=== PATIENT | female | born 1980 ===

== ENCOUNTER 2018-06-20 16:41 | Inpatient (IN) | payer BC ==
[2018-06-20 18:24] LABS: URINE BILIRUBIN NEGATIVE (NEGATIVE); URINE BLOOD NEGATIVE (NEGATIVE); URINE CLARITY CLEAR (Clear); URINE COLOR YELLOW (YELLOW); URINE GLUCOSE (UA) NEG (NEGATIVE); URINE LEUKOCYTE ESTERASE NEG Leu/uL (Negative); URINE PROTEIN NEGATIVE (NEGATIVE); URINE UROBILINOGEN 0.2-1.0 mg/dL (0.2-1.0)
[2018-06-20 18:28] LABS: BASO # 0.1 K/uL (0.0-0.2); BASO % 0.7 % (0.0-2.0); EOS # 0.1 K/uL (0.0-0.7); EOS % 1.2 % (0.0-4.0); HEMOGLOBIN 11.4 g/dL (12.0-16.0); LYMPH # 0.9 K/uL (1.0-4.3); LYMPH % 8.1 % (20.0-40.0); MEAN CELL VOLUME 75.5 fl (81.0-99.0); MEAN CORPUSCULAR HEMOGLOBIN 24.6 pg (27.0-31.0); MEAN CORPUSCULAR HGB CONC 32.6 g/dL (33.0-37.0); MEAN PLATELET VOLUME 8.7 fl (7.2-11.7); MONO # 0.8 K/uL (0.0-0.8); MONO % 7.6 % (0.0-10.0); NEUT # 9.1 K/uL (1.8-7.0); NEUT % 82.4 % (50.0-75.0); PLATELET COUNT 274 K/uL (130-400); RBC 4.63 Mil/uL (3.80-5.20); RED CELL DISTRIBUTION WIDTH 19.1 % (11.5-14.5); WHITE BLOOD COUNT 11.1 K/uL (4.8-10.8)
[2018-06-20 18:36] LABS: ALB/GLOB RATIO 1.3 (1.0-2.1); ALBUMIN 4.6 g/dL (3.5-5.0); ALT/SGPT 152 U/L (9-52); AST/SGOT 157 U/L (14-36); BLOOD UREA NITROGEN 10 mg/dl (7-17); CALCIUM 9.2 mg/dL (8.4-10.2); GFR NON-AFRICAN AMERICAN > 60; LIPASE 100 U/L (23-300)
--- NOTE | 2018-06-20 18:51 | US ---
Date of service: 06/20/2018 HISTORY: RUQ and aorta, central abd pain COMPARISON: None available TECHNIQUE: Sonographic evaluation of the right upper quadrant of the abdomen. FINDINGS: LIVER: Measures 16.4 cm in length. Echogenic liver may be seen in setting of hepatic parenchymal disease or fatty infiltration. No focal hepatic mass identified. The main portal vein appears patent with normal directional flow. No intrahepatic bile duct dilatation. GALLBLADDER: Gallstones. No gallbladder wall thickening or pericholecystic edema. Negative sonographic Sawyer's sign as assessed by the packaging materials inspector. COMMON BILE DUCT: Measures 4 mm. PANCREAS: Not well-visualized. RIGHT KIDNEY: Measures approximately 11.7 x 4.4 x 4.5 cm. No obstructing calculus or hydronephrosis identified. AORTA: Imaged portions of the aorta as follows: Proximal aorta measures approximately 2.3 x 1.7 x 1.6 cm; Mid aorta measures approximately 1.5 x 1.5 x 1.4 cm; Distal aorta measures approximately 1.8 x 1.4 x 1.2 cm. IVC: Limited visualization appears grossly unremarkable. OTHER FINDINGS: None . IMPRESSION: Cholelithiasis. Echogenic liver may be seen in setting of hepatic parenchymal disease or fatty infiltration. Additional findings as above.
--- NOTE | 2018-06-20 18:54 | ED PDOC ---
HPI: Abdomen Time Seen by Provider: 06/20/18 17:23 Chief Complaint (Nursing): Abdominal Pain Chief Complaint (Provider): Abdominal Pain History Per: Patient History/Exam Limitations: no limitations Onset/Duration Of Symptoms: Days Current Symptoms Are (Timing): Still Present Context: Food Quality Of Discomfort: "Pain" Associated Symptoms: Nausea. denies: Vomiting Additional Complaint(s): 38 year old female with PMHx of asthma and gastric sleeve presents to the ED for an evaluation of upper abdominal pain that is radiating to her back. She states the initial episode started yesterday after eating peanut butter. Today, the pain is associated with nausea and body aches. Also reports, had a prior episode of pain while driving one month ago hat resolved. Otherwise, patient denies melena, measured fever, vomiting or hematemesis. Past Medical History Reviewed: Historical Data, Nursing Documentation, Vital Signs Vital Signs: Last Vital Signs Temp 99.6 F 06/20/18 17:19 Pulse 104 H 06/20/18 17:19 Resp 16 06/20/18 17:19 BP 127/62 06/20/18 17:19 Pulse Ox 100 06/20/18 17:19 - Medical History PMH: Anemia, Asthma, Depression, Diabetes, HTN, Hypercholesterolemia, Hyperlipidemia, Hypothyroidism, Rheumatoid Arthritis, Sleep Apnea Denies: Chronic Kidney Disease - Surgical History Other surgeries: gastric sleeve, ear surgery and hip surgery - Family History Family History: States: Unknown Family Hx - Home Medications Home Medications: Ambulatory Orders Medication Instructions Recorded Acetaminophen with Codeine 1 tab PO Q6 PRN #10 tab 08/18/14 [Tylenol with Codeine No. 3 300 mg-30 mg] Albuterol Sulfate [Ventolin Hfa] 1 puff INH PRN PRN 06/21/18 Cholecalciferol (Vitamin D3) 400 unit PO DAILY 06/21/18 [Vitamin D-400] Lamotrigine [Lamictal Xr] 100 mg PO DAILY 06/21/18 Levothyroxine [Synthroid] 125 mcg PO DAILY 06/21/18 Loratadine [Claritin] 10 mg PO DAILY 06/21/18 Montelukast [Singulair] 10 mg PO DAILY 06/21/18 Omeprazole 40 mg PO DAILY 06/21/18 Sertraline [Zoloft] 150 mg PO DAILY 06/21/18 - Allergies Allergies/Adverse Reactions: Allergies Allergy/AdvReac Type Severity Reaction Status Date / Time adhesive tape Allergy RASH Verified 06/20/18 17:19 atorvastatin [From Lipitor] Allergy RASH Verified 06/20/18 17:19 fluoxetine [From Prozac] Allergy RASH Verified 06/20/18 17:19 Review of Systems ROS Statement: Except As Marked, All Systems Reviewed And Found Negative Constitutional: Positive for: Other (body pain ). Negative for: Fever Gastrointestinal: Positive for: Nausea, Abdominal Pain. Negative for: Vomiting, Hematemesis Physical Exam - Reviewed Nursing Documentation Reviewed: Yes Vital Signs Reviewed: Yes - Physical Exam Appears: Positive for: Non-toxic, No Acute Distress Head Exam: Positive for: ATRAUMATIC, NORMAL INSPECTION, NORMOCEPHALIC Skin: Positive for: Normal Color, Warm, Dry. Negative for: Rash Eye Exam: Positive for: EOMI, Normal appearance, PERRL ENT: Positive for: Normal ENT Inspection Neck: Positive for: Normal, Painless ROM, Supple. Negative for: Decreased ROM Cardiovascular/Chest: Positive for: Regular Rate, Rhythm. Negative for: Murmur Respiratory: Positive for: Normal Breath Sounds. Negative for: Decreased Breath Sounds, Respiratory Distress Gastrointestinal/Abdominal: Positive for: Tenderness (upper abdominal ), Other (positive for Sawyer's sign) Back: Positive for: Normal Inspection Extremity: Positive for: Normal ROM. Negative for: Tenderness, Pedal Edema, Deformity Neurological/Psych: Positive for: Awake, Alert, Normal Tone, Oriented (x3) - Laboratory Results Result Diagrams: 06/21/18 04:25 06/21/18 04:25 Lab Results: Total Bilirubin 0.4 mg/dl (0.2-1.3) 06/20/18 18:18 AST 157 U/L (14-36) H 06/20/18 18:18 ALT 152 U/L (9-52) H D 06/20/18 18:18 Alkaline Phosphatase 144 U/L (38-126) H 06/20/18 18:18 Total Protein 8.2 G/DL (6.3-8.2) 06/20/18 18:18 Albumin 4.6 g/dL (3.5-5.0) 06/20/18 18:18 Globulin 3.6 gm/dL (2.2-3.9) 06/20/18 18:18 Albumin/Globulin Ratio 1.3 (1.0-2.1) 06/20/18 18:18 Lipase 100 U/L (23-300) 06/20/18 18:18 Urine Color Yellow (YELLOW) 06/20/18 18:02 Urine Clarity Clear (Clear) 06/20/18 18:02 Urine pH 6.0 (5.0-8.0) 06/20/18 18:02 Ur Specific [place] 1.011 (1.003-1.030) 06/20/18 18:02 Urine Protein Negative mg/dL (NEGATIVE) 06/20/18 18:02 Urine Glucose (UA) Neg mg/dL (NEGATIVE) 06/20/18 18:02 Urine Ketones Negative mg/dL (NEGATIVE) 06/20/18 18:02 Urine Blood Negative (NEGATIVE) 06/20/18 18:02 Urine Nitrate Negative (NEGATIVE) 06/20/18 18:02 Urine Bilirubin Negative (NEGATIVE) 06/20/18 18:02 Urine Urobilinogen 0.2-1.0 mg/dL (0.2-1.0) 06/20/18 18:02 Ur Leukocyte Esterase Neg Rossy/uL (Negative) 06/20/18 18:02 Urine RBC (Auto) 1 /hpf (0-3) 06/20/18 18:02 Urine Microscopic WBC < 1 /hpf (0-5) 06/20/18 18:02 - ECG O2 Sat by Pulse Oximetry: 100 (RA) Pulse Ox Interpretation: Normal Medical Decision Making Medical Decision Making: Time: 1734 Impression: r/o biliary colic. Will initial antiemetic and pain medications Plan: CMP Lipase ED urine ED urine dipstick CBC w/ differential Morphine 2mg Zofran 4mg UA Abdomen limited US Reevaluation 1847 Abdomen US HISTORY: RUQ and aorta, central abd pain COMPARISON: None available TECHNIQUE: Sonographic evaluation of the right upper quadrant of the abdomen. FINDINGS: LIVER: Measures 16.4 cm in length. Echogenic liver may be seen in setting of hepatic parenchymal disease or fatty infiltration. No focal hepatic mass identified. The main portal vein appears patent with normal directional flow. No intrahepatic bile duct dilatation. GALLBLADDER: Gallstones. No gallbladder wall thickening or pericholecystic edema. Negative sonographic Sawyer's sign as assessed by the mine engineer. COMMON BILE DUCT: Measures 4 mm. PANCREAS: Not well-visualized. RIGHT KIDNEY: Measures approximately 11.7 x 4.4 x 4.5 cm. No obstructing calculus or hyd ronephrosis identified. AORTA: Imaged portions of the aorta as follows: Proximal aorta measures approximately 2.3 x 1.7 x 1.6 cm; Mid aorta measures approximately 1.5 x 1.5 x 1.4 cm; Distal aorta measures approximately 1.8 x 1.4 x 1.2 cm. IVC: Limited visualization appears grossly unremarkable. OTHER FINDINGS: None . IMPRESSION: Cholelithiasis. Echogenic liver may be seen in setting of hepatic parenchymal disease or fatty infiltration. Additional findings as above. 195 ABD & Pelvis IV contrast CT EXAM: CT Abdomen and Pelvis with IV contrast CLINICAL HISTORY: Ruq pain, cholelithiasis, elevated LFT'S TECHNIQUE: Axial computed tomography images of the abdomen and pelvis with intravenous contrast. 110.93 mGy-cm CONTRAST: With; [id number] 95ML COMPARISON: None provided. FINDINGS: LUNG BASES: The lung bases appear clear. No pleural effusions are seen. LIVER: There is hepatomegaly noted. The liver measured 19.3 cm in the midclavicular line. GALLBLADDER AND BILE DUCTS: There is tumefactive sludge noted in the gallbladder lumen. No biliary ductal dilatation is evident. PANCREAS: Unremarkable. SPLEEN: There is splenomegaly noted. The spleen measured approximately 17.7 x 4.6 cm in craniocaudal and transverse dimensions respectively. ADRENAL GLANDS: Unremarkable. KIDNEYS, URETERS, AND BLADDER: The kidneys appear within normal limits. There is no hydronephrosis or hydroureter. No urinary calculi are seen. The urinary bladder appeared normal in size and configuration. STOMACH AND BOWEL: A small hiatal hernia is present. Perigastric surgical sutures are noted from prior surgery. No evidence of bowel obstruction. There is mild mucosal wall thickening of the small intestinal tract with fluid in the lumen noted compatible with diffuse enteritis. Infectious or inflammatory etiologies are thought most likely. No evidence suggesting colitis. APPENDIX: No evidence of acute appendicitis on CT examination. PERITONEUM: No free fluid. No free air. LYMPH NODES: No lymphadenopathy is evident. REPRODUCTIVE: Unremarkable as visualized. VASCULATURE: No evidence of abdominal aortic aneurysm. Moderate atherosclerotic vascular plaquing is present. BONES: No aggressive appearing osseous lesion. No acute osseous pathology evident. A 6.2 mm sclerotic focus is seen in theL5 vertebral body thought compatible with a bone island. IMPRESSION: 1. Hepatomegaly. 2. Splenomegaly. 3. Tumefactive sludge noted in the gallbladder. 4. A small hiatal hernia is noted. 5. Evidence of previous gastric surgery. 6. Evidence of diffuse enteritis. Electronically signed on Jun 20, 2018 8:52:43 PM EDT by: Trev Millan M.D., M.B.A., Certified By [employer] Trained MRI and CT Specialist 910pm MD took patient's oral temp 101.8, therefore SIRS now triggered and given imaging findings concern for sepsis. VBG w lactate and cultures ordered, IVF bolus, tylenol, initiate Zosyn after cultures obtained. D/w C [facility] ANP, admit and consult surgery Dr Gill telephone station repairer. lactate <2.0, meets sepsis but not severe sepsis criteria Scribe Attestation: Documented by Samm Mckeon, acting as a scribe for Dennis Vieira III, DO. Provider Scribe Attestation: All medical record entries made by the Scribe were at my direction and personally dictated by me. I have reviewed the chart and agree that the record accurately reflects my personal performance of the history, physical exam, medical decision making, and the department course for this patient. I have also personally directed, reviewed, and agree with the discharge instructions and disposition. Disposition - Clinical Impression Clinical Impression: Sepsis, Cholelithiasis - Patient ED Disposition Is Patient to be Admitted: Yes Counseled Patient/Family Regarding: Studies Performed, Diagnosis - Disposition Disposition Time: 20:45 Condition: FAIR - Pt Status Changed To: Hospital Disposition Of: Inpatient - Admit Certification Admit to Inpatient:: After my assessment, the patient will require hospitalizat ion for at least two midnights. This is because of the severity of symptoms shown, intensity of services needed, and/or the medical risk in this patient being treated as an outpatient.
[2018-06-20 19:56] LABS: ANISOCYTOSIS SLIGHT; BASOPHIL 1 % (0-2); EOSINOPHIL 2 % (0-7); LYMPHOCYTE 13 % (20-50); MONOCYTE 5 % (0-10); NEUTROPHIL 79 % (42-75); PLATELET ESTIMATE NORMAL (NORMAL); TOTAL CELLS COUNTED 100
[2018-06-20 19:57] LABS: HYPOCHROMIC SLIGHT; MICROCYTOSIS SLIGHT; OVALOCYTES SLIGHT
[2018-06-20] MEDS ORDERED: Iohexol 300 100 ML IJ ONE (20:00)
[2018-06-20] MEDS ORDERED: Sodium Chloride 0.9% 50 ML IV ONE (20:01)
[2018-06-20] MEDS ORDERED: Sodium Chloride 0.9% 1,000 ML IV STA (21:14)
[2018-06-20] MEDS ORDERED: Piperacillin/Tazobact 4.5 GM in Sodium Chloride 0.9% 100 ML IVPB STA (21:15)
--- NOTE | 2018-06-20 22:10 | CP.PCM.CON ---
<JuarezPamela montoya - Last Filed: 06/20/18 22:06> History of Present Illness - History of Present Illness History of Present Illness: General Surgery - Dr. Gill 38 yo F presenting with upper abdominal pain and nausea x1 day. Pt states she had the pain yesterday but it seemed to go away at night time. Earlier today the pain returned shortly after eating and became worse, prompting her to come to the er. She describes it as an aching cramping pain located in the upper abdomen/epigastric region and RUQ abdomen, radiating towards the umbilicus, 10/01 but improved with pain medications. Pt states she's had episodes of this pain in the past and was told she had gallstones, but this episode is more severe. She had associated Nausea and Fever while in the ER. She denies any Chills, V omiting, Diarrhea, Constipation, Dysuria, Hematuria, Shortness of breath, Chest pain. PMH: Asthma, Sleep Apnea, HTN, Hypothyroid, GERD, Anxiety/Depression PSH: Gastric Sleeve in 2013 at [facility] [place] Arthroscopy, Hip surgery, I&D Meds as per chart Allergic to Fluoxetine and Atorvastatin +Tobacco use, Social ETOH, Denies any drug use Review of Systems - Review of Systems All systems: reviewed and no additional remarkable complaints except (as per HPI) Past Patient History - Past Social History Smoking Status: Heavy Smoker > 10 Cigarettes Daily - CARDIAC Hx Hypercholesterolemia: Yes Hx Hypertension: Yes - PULMONARY Hx Asthma: Yes Hx Sleep Apnea: Yes - NEUROLOGICAL Hx Neurological Disorder: No - HEENT Hx HEENT Problems: Yes Other/Comment: Drainage tube in left ear. - RENAL Hx Chronic Kidney Disease: No - ENDOCRINE/METABOLIC Hx Hypothyroidism: Yes - HEMATOLOGICAL/ONCOLOGICAL Hx Anemia: Yes - INTEGUMENTARY Hx Dermatological Problems: No - MUSCULOSKELETAL/RHEUMATOLOGICAL Hx Rheumatoid Arthritis: Yes - GASTROINTESTINAL Hx Gastrointestinal Disorders: Yes Hx Gastroesophageal Reflux: Yes - GENITOURINARY/GYNECOLOGICAL Hx Genitourinary Disorders: No - PSYCHIATRIC Hx Depression: Yes - SURGICAL HISTORY Hx Surgeries: Yes Hx Gastric Bypass Surgery: Yes (09/19/14) Other/Comment: incision and drainage of right groin abscess x4. Right hip arthroplasty x2. - ANESTHESIA Hx Anesthesia: Yes Hx Anesthesia Reactions: No Hx Malignant Hyperthermia: No Meds Allergies/Adverse Reactions: Allergies Allergy/AdvReac Type Severity Reaction Status Date / Time adhesive tape Allergy RASH Verified 06/20/18 17:19 atorvastatin [From Lipitor] Allergy RASH Verified 06/20/18 17:19 fluoxetine [From Prozac] Allergy RASH Verified 06/20/18 17:19 - Medications Medications: Current Medications Acetaminophen (Tylenol 325mg Tab) 650 mg PO Q4 PRN PRN Reason: Fever >100.4 F Sodium Chloride (Sodium Chloride 0.9%) 1,000 mls @ 1,000 mls/hr IV .Q1H STA Stop: 06/20/18 22:13 Last Admin: 06/20/18 21:30 Dose: 1,000 mls/hr Piperacillin Sod/Tazobactam (Sod 4.5 gm/ Sodium Chloride) 100 mls @ 100 mls/hr IVPB STAT STA; Protocol Stop: 06/20/18 22:14 Ketorolac Tromethamine (Toradol) 15 mg IVP Q6 PRN PRN Reason: Pain, moderate (4-7) Morphine Sulfate (Morphine) 2 mg IVP Q4 PRN PRN Reason: Pain, severe (8-10) Ondansetron HCl (Zofran Inj) 4 mg IVP Q6 PRN PRN Reason: Nausea/Vomiting Physical Exam - Constitutional Appears: Well, No Acute Distress - Head Exam Head Exam: ATRAUMATIC, NORMAL INSPECTION, NORMOCEPHALIC - Eye Exam Eye Exam: Normal appearance. absent: Scleral icterus Pupil Exam: NORMAL ACCOMODATION - ENT Exam ENT Exam: Mucous Membranes Moist - Respiratory Exam Respiratory Exam: NORMAL BREATHING PATTERN. absent: Respiratory Distress - Cardiovascular Exam Cardiovascular Exam: REGULAR RHYTHM - GI/Abdominal Exam GI & Abdominal Exam: Soft, Tenderness (RUQ and epigastric). absent: Distended, Firm, Guarding, Hernia, Rebound, Rigid - Neurological Exam Neurological exam: Alert, Oriented x3 - Psychiatric Exam Psychiatric exam: Normal Affect, Normal Mood - Skin Skin Exam: Dry, Intact Results - Vital Signs Recent Vital Signs: Last Vital Signs Temp 99.6 F 06/20/18 17:19 Pulse 104 H 06/20/18 17:19 Resp 16 06/20/18 17:19 BP 127/62 06/20/18 17:19 Pulse Ox 100 06/20/18 21:19 - Labs Result Diagrams: 06/20/18 18:18 06/20/18 18:18 Labs: Laboratory Results - last 24 hr 06/20/18 06/20/18 06/20/18 18:02 18:18 18:18 WBC 11.1 H RBC 4.63 Hgb 11.4 L Hct 35.0 MCV 75.5 L D MCH 24.6 L MCHC 32.6 L RDW 19.1 H Plt Count 274 D MPV 8.7 Neut % (Auto) 82.4 H Lymph % (Auto) 8.1 L [place] % (Auto) 7.6 Eos % (Auto) 1.2 Baso % (Auto) 0.7 Neut # (Auto) 9.1 H Lymph # (Auto) 0.9 L [place] # (Auto) 0.8 Eos # (Auto) 0.1 Baso # (Auto) 0.1 Neutrophils % (Manual) 79 H Lymphocytes % (Manual) 13 L Monocytes % (Manual) 5 Eosinophils % (Manual) 2 Basophils % (Manual) 1 Platelet Estimate Normal Hypochromasia (manual) Slight Anisocytosis (manual) Slight Microcytosis (manual) Slight Ovalocytes Slight Sodium 136 Potassium 3.7 Chloride 100 Carbon Dioxide 26 Anion Gap 14 BUN 10 Creatinine 0.6 L Est GFR ( Amer) > 60 Est GFR (Non-Af Amer) > 60 Random Glucose 87 Calcium 9.2 Total Bilirubin 0.4 AST 157 H ALT 152 H D Alkaline Phosphatase 144 H Total Protein 8.2 Albumin 4.6 Globulin 3.6 Albumin/Globulin Ratio 1.3 Lipase 100 Urine Color Yellow Urine Clarity Clear Urine pH 6.0 Ur Specific [place] 1.011 Urine Protein Negative Urine Glucose (UA) Neg Urine Ketones Negative Urine Blood Negative Urine Nitrate Negative Urine Bilirubin Negative Urine Urobilinogen 0.2-1.0 Ur Leukocyte Esterase Neg Urine RBC (Auto) 1 Urine Microscopic WBC < 1 - Imaging and Cardiology US - abdomen Status: Image reviewed by me, Report reviewed by me Assessment & Plan - Assessment and Plan (Free Text) Assessment: 38 yo F w/ hx of gastric sleeve in 2013, presenting with abdominal pain and found to have cholelithiasis -Admitted to medical service -Maintain NPO -IVF -IV Abx: Zosyn -Pain control and Anti-emetics PRN -Further reccs as per Dr. Jairo Juarez PGY4 <Maximus Gill - Last Filed: 06/21/18 14:25> Meds - Medications Medications: Current Medications Acetaminophen (Tylenol 325mg Tab) 650 mg PO Q4 PRN PRN Reason: Fever >100.4 F Last Admin: 06/21/18 04:22 Dose: 650 mg Piperacillin Sod/Tazobactam (Sod 3.375 gm/ Sodium Chloride) 100 mls @ 100 mls/hr IVPB Q6 LAY; Protocol Last Admin: 06/21/18 10:14 Dose: 100 mls/hr Lactated Ringer's (Lactated Ringer's) 1,000 mls @ 125 mls/hr IV .Q8H LAY Last Admin: 06/21/18 06:39 Dose: Not Given Ketorolac Tromethamine (Toradol) 15 mg IVP Q6 PRN PRN Reason: Pain, moderate (4-7) Morphine Sulfate (Morphine) 2 mg IVP Q4 PRN PRN Reason: Pain, severe (8-10) Last Admin: 06/21/18 09:40 Dose: 2 mg Ondansetron HCl (Zofran Inj) 4 mg IVP Q6 PRN PRN Reason: Nausea/Vomiting Results - Vital Signs Recent Vital Signs: Last Vital Signs Temp 99.3 F 06/21/18 12:33 Pulse 73 06/21/18 12:33 Resp 20 06/21/18 12:33 BP 111/68 06/21/18 12:33 Pulse Ox 95 06/21/18 12:33 - Labs Result Diagrams: 06/21/18 04:25 06/21/18 04:25 Labs: Laboratory Results - last 24 hr 06/20/18 06/20/18 06/20/18 18:02 18:18 18:18 WBC 11.1 H RBC 4.63 Hgb 11.4 L Hct 35.0 MCV 75.5 L D MCH 24.6 L MCHC 32.6 L RDW 19.1 H Plt Count 274 D MPV 8.7 Neut % (Auto) 82.4 H Lymph % (Auto) 8.1 L [place] % (Auto) 7.6 Eos % (Auto) 1.2 Baso % (Auto) 0.7 Neut # (Auto) 9.1 H Lymph # (Auto) 0.9 L [place] # (Auto) 0.8 Eos # (Auto) 0.1 Baso # (Auto) 0.1 Neutrophils % (Manual) 79 H Lymphocytes % (Manual) 13 L Monocytes % (Manual) 5 Eosinophils % (Manual) 2 Basophils % (Manual) 1 Platelet Estimate Normal Hypochromasia (manual) Slight Anisocytosis (manual) Slight Microcytosis (manual) Slight Ovalocytes Slight PT INR APTT pO2 VBG pH VBG pCO2 VBG HCO3 VBG Total CO2 VBG O2 Sat (Calc) VBG Base Excess VBG Potassium Glucose Lactate FiO2 Sodium 136 Potassium 3.7 Chloride 100 Carbon Dioxide 26 Anion Gap 14 BUN 10 Creatinine 0.6 L Est GFR ( Amer) > 60 Est GFR (Non-Af Amer) > 60 Random Glucose 87 Calcium 9.2 Total Bilirubin 0.4 AST 157 H ALT 152 H D Alkaline Phosphatase 144 H Total Protein 8.2 Albumin 4.6 Globulin 3.6 Albumin/Globulin Ratio 1.3 Lipase 100 Venous Blood Potassium Urine Color Yellow Urine Clarity Clear Urine pH 6.0 Ur Specific [place] 1.011 Urine Protein Negative Urine Glucose (UA) Neg Urine Ketones Negative Urine Blood Negative Urine Nitrate Negative Urine Bilirubin Negative Urine Urobilinogen 0.2-1.0 Ur Leukocyte Esterase Neg Urine RBC (Auto) 1 Urine Microscopic WBC < 1 06/20/18 06/21/18 06/21/18 22:10 04:25 04:25 WBC 10.1 RBC 4.34 Hgb 10.6 L Hct 32.6 L MCV 75.2 L MCH 24.5 L MCHC 32.5 L RDW 19.5 H Plt Count 232 MPV 8.8 Neut % (Auto) 84.4 H Lymph % (Auto) 5.2 L [place] % (Auto) 9.3 Eos % (Auto) 0.4 Baso % (Auto) 0.7 Neut # (Auto) 8.5 H Lymph # (Auto) 0.5 L [place] # (Auto) 0.9 H Eos # (Auto) 0.0 Baso # (Auto) 0.1 Neutrophils % (Manual) Lymphocytes % (Manual) Monocytes % (Manual) Eosinophils % (Manual) Basophils % (Manual) Platelet Estimate Hypochromasia (manual) Anisocytosis (manual) Microcytosis (manual) Ovalocytes PT INR APTT pO2 43 VBG pH 7.43 VBG pCO2 38 L VBG HCO3 25.2 VBG Total CO2 26.4 VBG O2 Sat (Calc) 84.8 H VBG Base Excess 1.0 VBG Potassium 3.7 Glucose 85 Lactate 1.2 FiO2 21.0 Sodium 134.0 135 Potassium 3.6 Chloride 103.0 102 Carbon Dioxide 24 Anion Gap 13 BUN 9 Creatinine 0.6 L Est GFR ( Amer) > 60 Est GFR (Non-Af Amer) > 60 Random Glucose 92 Calcium 8.3 L Total Bilirubin 0.5 AST 66 H D ALT 100 H D Alkaline Phosphatase 119 Total Protein 7.2 Albumin 4.0 Globulin 3.2 Albumin/Globulin Ratio 1.3 Lipase Venous Blood Potassium 3.7 Urine Color Urine Clarity Urine pH Ur Specific [place] Urine Protein Urine Glucose (UA) Urine Ketones Urine Blood Urine Nitrate Urine Bilirubin Urine Urobilinogen Ur Leukocyte Esterase Urine RBC (Auto) Urine Microscopic WBC 06/21/18 04:25 WBC RBC Hgb Hct MCV MCH MCHC RDW Plt Count MPV Neut % (Auto) Lymph % (Auto) [place] % (Auto) Eos % (Auto) Baso % (Auto) Neut # (Auto) Lymph # (Auto) [place] # (Auto) Eos # (Auto) Baso # (Auto) Neutrophils % (Manual) Lymphocytes % (Manual) Monocytes % (Manual) Eosinophils % (Manual) Basophils % (Manual) Platelet Estimate Hypochromasia (manual) Anisocytosis (manual) Microcytosis (manual) Ovalocytes PT 13.4 H INR 1.2 APTT 33.6 pO2 VBG pH VBG pCO2 VBG HCO3 VBG Total CO2 VBG O2 Sat (Calc) VBG Base Excess VBG Potassium Glucose Lactate FiO2 Sodium Potassium Chloride Carbon Dioxide Anion Gap BUN Creatinine Est GFR ( Amer) Est GFR (Non-Af Amer) Random Glucose Calcium Total Bilirubin AST ALT Alkaline Phosphatase Total Protein Albumin Globulin Albumin/Globulin Ratio Lipase Venous Blood Potassium Urine Color Urine Clarity Urine pH Ur Specific [place] Urine Protein Urine Glucose (UA) Urine Ketones Urine Blood Urine Nitrate Urine Bilirubin Urine Urobilinogen Ur Leukocyte Esterase Urine RBC (Auto) Urine Microscopic WBC Assessment & Plan - Assessment and Plan (Free Text) Assessment: unclear that she has cholecystitis, will get HIDA scan
[2018-06-20 22:17] LABS: VENOUS BLOOD GAS PCO2 38 mmHg (40-60); VENOUS BLOOD GAS PO2 43 mm/Hg (30-55); VENOUS BLOOD PH 7.43 (7.32-7.43)
[2018-06-21] MEDS: Lactated Ringer's 1,000 ML IV SCH ×3 (00:25→16:20)
[2018-06-21] MEDS ORDERED: Albuterol-Ipratrop 3 mg / 0.5 (3 ml) UD INH STA (01:11)
[2018-06-21] MEDS: Piperacillin/Tazobact 3.375 GM in Sodium Chloride 0.9% 100 ML IVPB SCH ×4 (04:23→21:17)
[2018-06-21 05:36] LABS: BASO # 0.1 K/uL (0.0-0.2); BASO % 0.7 % (0.0-2.0); EOS % 0.4 % (0.0-4.0); HEMOGLOBIN 10.6 g/dL (12.0-16.0); LYMPH # 0.5 K/uL (1.0-4.3); LYMPH % 5.2 % (20.0-40.0); MEAN CELL VOLUME 75.2 fl (81.0-99.0); MEAN CORPUSCULAR HEMOGLOBIN 24.5 pg (27.0-31.0); MEAN CORPUSCULAR HGB CONC 32.5 g/dL (33.0-37.0); MEAN PLATELET VOLUME 8.8 fl (7.2-11.7); MONO # 0.9 K/uL (0.0-0.8); MONO % 9.3 % (0.0-10.0); NEUT # 8.5 K/uL (1.8-7.0); NEUT % 84.4 % (50.0-75.0); NRBC % 0.1 % (0.0-0.0); RBC 4.34 Mil/uL (3.80-5.20); RED CELL DISTRIBUTION WIDTH 19.5 % (11.5-14.5); WHITE BLOOD COUNT 10.1 K/uL (4.8-10.8)
[2018-06-21 05:45] LABS: INR 1.2; PROTHROMBIN TIME 13.4 Seconds (9.8-13.1)
[2018-06-21 05:48] LABS: PARTIAL THROMBOPLASTIN TIME 33.6 Seconds (25.6-37.1)
[2018-06-21 06:05] LABS: ALB/GLOB RATIO 1.3 (1.0-2.1); ALT/SGPT 100 U/L (9-52); AST/SGOT 66 U/L (14-36); BLOOD UREA NITROGEN 9 mg/dl (7-17); CALCIUM 8.3 mg/dL (8.4-10.2); GFR NON-AFRICAN AMERICAN > 60
--- NOTE | 2018-06-21 09:06 | CT ---
Date of service: 06/20/2018 PROCEDURE: CT Abdomen and Pelvis with contrast HISTORY: RUQ pain cholelithiasis, elev LFTs COMPARISON: None. TECHNIQUE: Contrast dose: 95 mL Omnipaque 300 Radiation dose: Total exam DLP = 1110.93 mGy-cm. This CT exam was performed using one or more of the following dose reduction techniques: Automated exposure control, adjustment of the mA and/or kV according to patient size, and/or use of iterative reconstruction technique. FINDINGS: LOWER THORAX: Unremarkable. LIVER: Unremarkable. No gross lesion or ductal dilatation. GALLBLADDER AND BILE DUCTS: Cholelithiasis as demonstrated on ultrasound examination of the same date as well. No mural thickening or pericholecystic fluid. PANCREAS: Unremarkable. No gross lesion or ductal dilatation. SPLEEN: Mild splenomegaly. The spleen measures approximately 17.7 cm in greatest dimension. No focal mass. ADRENALS: Unremarkable. No mass. KIDNEYS AND URETERS: Unremarkable. No hydronephrosis. No solid mass. VASCULATURE: Unremarkable. No aortic aneurysm. No aortic atherosclerotic calcification or mural plaque present. BOWEL: Evidence of gastric sleeve procedure. Very small hiatal hernia. No bowel obstruction. No other abnormal bowel loops. APPENDIX: Normal appendix. PERITONEUM: Unremarkable. No free fluid. No free air. LYMPH NODES: Unremarkable. No enlarged lymph nodes. BLADDER: Poorly distended. Grossly normal. REPRODUCTIVE: Normal uterus. BONES: No acute fracture. OTHER FINDINGS: None. IMPRESSION: Cholelithiasis without evidence of cholecystitis. Splenomegaly. Status post gastric sleeve procedure. Small hiatal hernia. No other significant abnormality. The preliminary findings for this examination were reported by [facility] at 8:52 p.m. on 06/20/2018. There is discordance of this report with the preliminary findings. There is no evidence of diffuse enteritis on this examination.
--- NOTE | 2018-06-21 12:01 | CP.PCM.HP ---
History of Present Illness - History of Present Illness History of Present Illness: pt admitted for cholelithiasis, sepsis, cholecystitis. has been having fevers and abd pain. no n/v/d at present. bw nad imaging noted. consult appriciated. Present on Admission - Present on Admission Any Indicators Present on Admission: No Review of Systems - Constitutional Constitutional: As Per HPI, Fever - Gastrointestinal Gastrointestinal: As Per HPI, Abdominal Pain Past Patient History - Past Medical History & Family History Past Medical History?: Yes - Past Social History Smoking Status: Heavy Smoker > 10 Cigarettes Daily - CARDIAC Hx Hypercholesterolemia: Yes Hx Hypertension: Yes - PULMONARY Hx Asthma: Yes Hx Sleep Apnea: Yes - NEUROLOGICAL Hx Neurological Disorder: No - HEENT Hx HEENT Problems: Yes Other/Comment: Drainage tube in left ear. - RENAL Hx Chronic Kidney Disease: No - ENDOCRINE/METABOLIC Hx Hypothyroidism: Yes - HEMATOLOGICAL/ONCOLOGICAL Hx AIDS: No Hx Anemia: Yes Hx Human Immunodeficiency Virus (HIV): No - INTEGUMENTARY Hx Dermatological Problems: No - MUSCULOSKELETAL/RHEUMATOLOGICAL Hx Falls: No Hx Rheumatoid Arthritis: Yes - GASTROINTESTINAL Hx Gastrointestinal Disorders: Yes Hx Gastroesophageal Reflux: Yes - GENITOURINARY/GYNECOLOGICAL Hx Genitourinary Disorders: No - PSYCHIATRIC Hx Anxiety: Yes Hx Depression: Yes Hx Substance Use: No - SURGICAL HISTORY Hx Surgeries: Yes Hx Gastric Bypass Surgery: Yes (09/19/14) Other/Comment: incision and drainage of right groin abscess x5. Right hip arthroplasty x2. - ANESTHESIA Hx Anesthesia: Yes Hx Anesthesia Reactions: No Hx Malignant Hyperthermia: No Meds Allergies/Adverse Reactions: Allergies Allergy/AdvReac Type Severity Reaction Status Date / Time adhesive tape Allergy RASH Verified 06/20/18 17:19 atorvastatin [From Lipitor] Allergy RASH Verified 06/20/18 17:19 fluoxetine [From Prozac] Allergy RASH Verified 06/20/18 17:19 Physical Exam - Constitutional Appears: Well, Non-toxic, No Acute Distress - Head Exam Head Exam: ATRAUMATIC, NORMAL INSPECTION, NORMOCEPHALIC - Eye Exam Eye Exam: EOMI, Normal appearance, PERRL Pupil Exam: NORMAL ACCOMODATION, PERRL - ENT Exam ENT Exam: Mucous Membranes Moist, Normal Exam - Neck Exam Neck exam: Positive for: Normal Inspection - Respiratory Exam Respiratory Exam: Clear to Auscultation Bilateral, NORMAL BREATHING PATTERN - Cardiovascular Exam Cardiovascular Exam: REGULAR RHYTHM, RRR, +S1, +S2 - GI/Abdominal Exam GI & Abdominal Exam: Normal Bowel Sounds, Soft, Tenderness Additional comments: ruq pain - Extremities Exam Extremities exam: Positive for: full ROM, normal capillary refill, normal inspection, pedal pulses present - Back Exam Back exam: NORMAL INSPECTION - Neurological Exam Neurological exam: Alert, CN II-XII Intact, Normal Gait, Oriented x3, Reflexes Normal - Psychiatric Exam Psychiatric exam: Normal Affect, Normal Mood - Skin Skin Exam: Dry, Intact, Normal Color, Warm Results - Vital Signs Recent Vital Signs: Last Vital Signs Temp 99.0 F 06/21/18 08:25 Pulse 72 06/21/18 08:48 Resp 20 06/21/18 08:48 BP 96/57 L 06/21/18 08:48 Pulse Ox 98 06/21/18 08:48 - Labs Result Diagrams: 06/21/18 04:25 06/21/18 04:25 Labs: Laboratory Results - last 24 hr 06/20/18 06/20/18 06/20/18 18:02 18:18 18:18 WBC 11.1 H RBC 4.63 Hgb 11.4 L Hct 35.0 MCV 75.5 L D MCH 24.6 L MCHC 32.6 L RDW 19.1 H Plt Count 274 D MPV 8.7 Neut % (Auto) 82.4 H Lymph % (Auto) 8.1 L [place] % (Auto) 7.6 Eos % (Auto) 1.2 Baso % (Auto) 0.7 Neut # (Auto) 9.1 H Lymph # (Auto) 0.9 L [place] # (Auto) 0.8 Eos # (Auto) 0.1 Baso # (Auto) 0.1 Neutrophils % (Manual) 79 H Lymphocytes % (Manual) 13 L Monocytes % (Manual) 5 Eosinophils % (Manual) 2 Basophils % (Manual) 1 Platelet Estimate Normal Hypochromasia (manual) Slight Anisocytosis (manual) Slight Microcytosis (manual) Slight Ovalocytes Slight PT INR APTT pO2 VBG pH VBG pCO2 VBG HCO3 VBG Total CO2 VBG O2 Sat (Calc) VBG Base Excess VBG Potassium Glucose Lactate FiO2 Sodium 136 Potassium 3.7 Chloride 100 Carbon Dioxide 26 Anion Gap 14 BUN 10 Creatinine 0.6 L Est GFR ( Amer) > 60 Est GFR (Non-Af Amer) > 60 Random Glucose 87 Calcium 9.2 Total Bilirubin 0.4 AST 157 H ALT 152 H D Alkaline Phosphatase 144 H Total Protein 8.2 Albumin 4.6 Globulin 3.6 Albumin/Globulin Ratio 1.3 Lipase 100 Venous Blood Potassium Urine Color Yellow Urine Clarity Clear Urine pH 6.0 Ur Specific [place] 1.011 Urine Protein Negative Urine Glucose (UA) Neg Urine Ketones Negative Urine Blood Negative Urine Nitrate Negative Urine Bilirubin Negative Urine Urobilinogen 0.2-1.0 Ur Leukocyte Esterase Neg Urine RBC (Auto) 1 Urine Microscopic WBC < 1 06/20/18 06/21/18 06/21/18 22:10 04:25 04:25 WBC 10.1 RBC 4.34 Hgb 10.6 L Hct 32.6 L MCV 75.2 L MCH 24.5 L MCHC 32.5 L RDW 19.5 H Plt Count 232 MPV 8.8 Neut % (Auto) 84.4 H Lymph % (Auto) 5.2 L [place] % (Auto) 9.3 Eos % (Auto) 0.4 Baso % (Auto) 0.7 Neut # (Auto) 8.5 H Lymph # (Auto) 0.5 L [place] # (Auto) 0.9 H Eos # (Auto) 0.0 Baso # (Auto) 0.1 Neutrophils % (Manual) Lymphocytes % (Manual) Monocytes % (Manual) Eosinophils % (Manual) Basophils % (Manual) Platelet Estimate Hypochromasia (manual) Anisocytosis (manual) Microcytosis (manual) Ovalocytes PT INR APTT pO2 43 VBG pH 7.43 VBG pCO2 38 L VBG HCO3 25.2 VBG Total CO2 26.4 VBG O2 Sat (Calc) 84.8 H VBG Base Excess 1.0 VBG Potassium 3.7 Glucose 85 Lactate 1.2 FiO2 21.0 Sodium 134.0 135 Potassium 3.6 Chloride 103.0 102 Carbon Dioxide 24 Anion Gap 13 BUN 9 Creatinine 0.6 L Est GFR ( Amer) > 60 Est GFR (Non-Af Amer) > 60 Random Glucose 92 Calcium 8.3 L Total Bilirubin 0.5 AST 66 H D ALT 100 H D Alkaline Phosphatase 119 Total Protein 7.2 Albumin 4.0 Globulin 3.2 Albumin/Globulin Ratio 1.3 Lipase Venous Blood Potassium 3.7 Urine Color Urine Clarity Urine pH Ur Specific [place] Urine Protein Urine Glucose (UA) Urine Ketones Urine Blood Urine Nitrate Urine Bilirubin Urine Urobilinogen Ur Leukocyte Esterase Urine RBC (Auto) Urine Microscopic WBC 06/21/18 04:25 WBC RBC Hgb Hct MCV MCH MCHC RDW Plt Count MPV Neut % (Auto) Lymph % (Auto) [place] % (Auto) Eos % (Auto) Baso % (Auto) Neut # (Auto) Lymph # (Auto) [place] # (Auto) Eos # (Auto) Baso # (Auto) Neutrophils % (Manual) Lymphocytes % (Manual) Monocytes % (Manual) Eosinophils % (Manual) Basophils % (Manual) Platelet Estimate Hypochromasia (manual) Anisocytosis (manual) Microcytosis (manual) Ovalocytes PT 13.4 H INR 1.2 APTT 33.6 pO2 VBG pH VBG pCO2 VBG HCO3 VBG Total CO2 VBG O2 Sat (Calc) VBG Base Excess VBG Potassium Glucose Lactate FiO2 Sodium Potassium Chloride Carbon Dioxide Anion Gap BUN Creatinine Est GFR ( Amer) Est GFR (Non-Af Amer) Random Glucose Calcium Total Bilirubin AST ALT Alkaline Phosphatase Total Protein Albumin Globulin Albumin/Globulin Ratio Lipase Venous Blood Potassium Urine Color Urine Clarity Urine pH Ur Specific [place] Urine Protein Urine Glucose (UA) Urine Ketones Urine Blood Urine Nitrate Urine Bilirubin Urine Urobilinogen Ur Leukocyte Esterase Urine RBC (Auto) Urine Microscopic WBC Assessment & Plan (1) Cholelithiasis Assessment and Plan: surgery, gi pain control fever control ivf npo Status: Acute (2) DVT prophylaxis Assessment and Plan: scd nad ae hose [place] Status: Acute (3) Sepsis Assessment and Plan: zosyn ivf fever control follow bw will follow for source and r/in or r/o Status: Acute Decision To Admit - Pt Status Changed To: Hospital Disposition Of: Inpatient - Admit Certification Admit to Inpatient:: After my assessment, the patient will require hospitalization for at least two midnights. This is because of the severity of symptoms shown, intensity of services needed, and/or the medical risk in this patient being treated as an outpatient. - . Bed Request Type: Telemetry Admitting Physician: Alexandro Nguyen
--- NOTE | 2018-06-21 15:53 | NM ---
Date of service: 06/21/2018 PROCEDURE: Nuclear Medicine Hepatobiliary Scan HISTORY: cholelithiasis COMPARISON: None available. TECHNIQUE: 5.300 mCi of technetium 99m Mebrofenin was administered intravenously. Planar images of the abdomen were obtained at 5 min intervals to 60 mins. Delayed images were also obtained. FINDINGS: LIVER: Timely and homogenous uptake. COMMON BILE DUCT: identified at 5 mins. GALLBLADDER: Not visualized SMALL BOWEL: Identified at 15 mins. IMPRESSION: Nonvisualization of the gallbladder. Findings consistent with cystic duct obstruction implying acute cholecystitis. No additional abnormality.
--- NOTE | 2018-06-21 17:15 | CP.PCM.PN ---
Subjective - Date & Time of Evaluation Date of Evaluation: 06/21/18 Time of Evaluation: 06:45 - Subjective Subjective: Surgery Progress Note patient continuing to have abdominal pain, localized to LUQ radiating mid- epigastrum. Remains NPO on IVF. + OOB and ambulating. Denies current nausea, vomiting, fever, chills Objective - Vital Signs/Intake and Output Vital Signs (last 24 hours): Temp Pulse Resp BP Pulse Ox 102.6 F H 77 16 124/73 98 06/21/18 16:23 06/21/18 16:23 06/21/18 16:23 06/21/18 16:23 06/21/18 16:23 - Medications Medications: Current Medications Acetaminophen (Tylenol 325mg Tab) 650 mg PO Q4 PRN PRN Reason: Fever >100.4 F Last Admin: 06/21/18 16:18 Dose: 650 mg Piperacillin Sod/Tazobactam (Sod 3.375 gm/ Sodium Chloride) 100 mls @ 100 mls/hr IVPB Q6 LAY; Protocol Last Admin: 06/21/18 16:19 Dose: 100 mls/hr Lactated Ringer's (Lactated Ringer's) 1,000 mls @ 125 mls/hr IV .Q8H LAY Last Admin: 06/21/18 16:20 Dose: 125 mls/hr Ketorolac Tromethamine (Toradol) 15 mg IVP Q6 PRN PRN Reason: Pain, moderate (4-7) Morphine Sulfate (Morphine) 2 mg IVP Q4 PRN PRN Reason: Pain, severe (8-10) Last Admin: 06/21/18 09:40 Dose: 2 mg Ondansetron HCl (Zofran Inj) 4 mg IVP Q6 PRN PRN Reason: Nausea/Vomiting - Labs Labs: 06/21/18 04:25 06/21/18 04:25 PT 13.4 Seconds (9.8-13.1) H 06/21/18 04:25 INR 1.2 06/21/18 04:25 APTT 33.6 Seconds (25.6-37.1) 06/21/18 04:25 - Constitutional Appears: Non-toxic, No Acute Distress - Head Exam Head Exam: ATRAUMATIC - Eye Exam Eye Exam: EOMI, Scleral icterus - ENT Exam ENT Exam: Mucous Membranes Moist - Respiratory Exam Respiratory Exam: absent: Accessory Muscle Use, Respiratory Distress - Cardiovascular Exam Cardiovascular Exam: REGULAR RHYTHM. absent: Bradycardia, Tachycardia - GI/Abdominal Exam GI & Abdominal Exam: Soft, Tenderness (LUQ, Mid-epigastrium). absent: Distended, Firm, Guarding, Rigid - Neurological Exam Neurological Exam: Alert, Awake, Oriented x3 - Psychiatric Exam Psychiatric exam: Normal Affect - Skin Skin Exam: Intact, Warm Assessment and Plan - Assessment and Plan (Free Text) Assessment: 38F w/ ABD pain, image findings suggestive of cholelithiasis Plan: - Obtain HIDA - Pain control - NPO - IVF/Abx - further recs per surgical attending PGY2
--- NOTE | 2018-06-22 00:01 | CON ---
DATE: 06/21/2018 REFERRING PHYSICIAN: Dr. Rodriguez. REASON FOR CONSULTATION: Abdominal pain. HISTORY OF PRESENT ILLNESS: This is a very pleasant 38-year-old female with a history of gastric sleeve several years ago, comes in with fever, abdominal pain, discomfort and right upper quadrant pain as well, radiated to the back for the past couple of days. Had some nausea and vomiting as well. She was better but the pain is still there. Most of the pain refluxed. Otherwise lying in bed, in mild abdominal distress. PAST MEDICAL HISTORY: As above. SURGICAL HISTORY: As above. MEDICATIONS: Have been reviewed. REVIEW OF SYSTEMS: All other systems have been reviewed and negative apart from the HPI. PHYSICAL EXAMINATION: VITAL SIGNS: Here in the hospital are grossly unremarkable. GENERAL: A middle-aged female, lying in bed comfortable, in no apparent distress. HEENT: Head: Normocephalic and atraumatic. Eyes: Pupils are equal and reactive to light bilaterally. No conjunctival pallor or icterus. NECK: Supple. Normal range of motion. No lymph nodes appreciated. LUNGS: Coarse breath sounds bilaterally. HEART: S1 and S2. Regular rate and rhythm. No murmurs appreciated. ABDOMEN: Soft. Tenderness and discomfort in the epigastrium and right upper quadrant region. No rebound. No guarding. RECTAL: Deferred. EXTREMITIES: Pulses present bilaterally. SKIN: Warm, dry, and intact. NEUROLOGIC: A and O x3. LABORATORY DATA: Labs and radiology have been reviewed. WBC is 10.1, hemoglobin 10.2, hematocrit 32.6. LFTs: Total bili is normal. AST and ALT are 66 and 100 down from 157 and 152. CAT scan shows cholelithiasis and mural thickening. ASSESSMENT AND PLAN: This is a 38-year-old female with abdominal pain, elevated liver function tests, fever, and discomfort. Clinically, I suspect it might be cholecystitis, no evidence of choledocholithiasis. At this point, recommend surgical evaluation. Nothing by mouth for now until pain free and Zofran for nausea. Thank you for the consult. Dennis Hirsch MD/ PhD cc: Dr. Rodriguez.
[2018-06-22] MEDS: Lactated Ringer's 1,000 ML IV SCH ×4 (00:10→21:47)
[2018-06-22] MEDS: Piperacillin/Tazobact 3.375 GM in Sodium Chloride 0.9% 100 ML IVPB SCH ×4 (03:13→21:21)
[2018-06-22 05:28] LABS: BASO % 0.5 % (0.0-2.0); EOS # 0.1 K/uL (0.0-0.7); EOS % 0.6 % (0.0-4.0); HEMOGLOBIN 10.3 g/dL (12.0-16.0); LYMPH # 0.7 K/uL (1.0-4.3); MEAN CELL VOLUME 75.9 fl (81.0-99.0); MEAN CORPUSCULAR HEMOGLOBIN 24.4 pg (27.0-31.0); MEAN CORPUSCULAR HGB CONC 32.2 g/dL (33.0-37.0); MEAN PLATELET VOLUME 8.5 fl (7.2-11.7); MONO % 11.6 % (0.0-10.0); NEUT # 6.7 K/uL (1.8-7.0); NEUT % 79.3 % (50.0-75.0); NRBC % 0.1 % (0.0-0.0); RBC 4.22 Mil/uL (3.80-5.20); RED CELL DISTRIBUTION WIDTH 19.5 % (11.5-14.5); WHITE BLOOD COUNT 8.5 K/uL (4.8-10.8)
[2018-06-22 05:30] LABS: INR 1.3; PROTHROMBIN TIME 14.6 Seconds (9.8-13.1)
[2018-06-22 05:47] LABS: ALB/GLOB RATIO 1.1 (1.0-2.1); ALBUMIN 3.7 g/dL (3.5-5.0); ALT/SGPT 61 U/L (9-52); AST/SGOT 34 U/L (14-36); BLOOD UREA NITROGEN 8 mg/dl (7-17); CALCIUM 8.5 mg/dL (8.4-10.2); GFR NON-AFRICAN AMERICAN > 60
[2018-06-22] MEDS ORDERED: Albuterol HFA 90 mcg/actuation (8 g) INH ONE (09:00)
--- NOTE | 2018-06-22 09:10 | CP.PCM.PN ---
Subjective - Date & Time of Evaluation Date of Evaluation: 06/22/18 Time of Evaluation: 09:08 - Subjective Subjective: pt doing well. still w/ intermittent f/c. no n/v/d. pain controlled. bw noted. lft trending down. hida positive for cholecystitis. for or today. case d/c w/ keon toldeo/ina Objective - Vital Signs/Intake and Output Vital Signs (last 24 hours): Temp Pulse Resp BP Pulse Ox 98.0 F 57 L 20 105/69 100 06/22/18 08:37 06/22/18 08:37 06/22/18 08:37 06/22/18 08:37 06/22/18 08:37 - Medications Medications: Current Medications Acetaminophen (Tylenol 325mg Tab) 650 mg PO Q4 PRN PRN Reason: Fever >100.4 F Last Admin: 06/22/18 04:15 Dose: 650 mg Piperacillin Sod/Tazobactam (Sod 3.375 gm/ Sodium Chloride) 100 mls @ 100 mls/hr IVPB Q6 LAY; Protocol Last Admin: 06/22/18 03:13 Dose: 100 mls/hr Lactated Ringer's (Lactated Ringer's) 1,000 mls @ 125 mls/hr IV .Q8H LAY Last Admin: 06/22/18 05:48 Dose: 125 mls/hr Ketorolac Tromethamine (Toradol) 15 mg IVP Q6 PRN PRN Reason: Pain, moderate (4-7) Morphine Sulfate (Morphine) 2 mg IVP Q4 PRN PRN Reason: Pain, severe (8-10) Last Admin: 06/21/18 09:40 Dose: 2 mg Nicotine (Nicoderm Cq) 1 patch TD DAILY LAY Nicotine (Nicoderm Cq) 1 patch TD DAILY LAY Ondansetron HCl (Zofran Inj) 4 mg IVP Q6 PRN PRN Reason: Nausea/Vomiting Last Admin: 06/22/18 04:42 Dose: 4 mg - Labs Labs: 06/22/18 04:45 06/22/18 04:45 PT 14.6 Seconds (9.8-13.1) H 06/22/18 04:45 INR 1.3 06/22/18 04:45 APTT 33.0 Seconds (25.6-37.1) 06/22/18 04:45 - Constitutional Appears: Well, Non-toxic, No Acute Distress - Head Exam Head Exam: ATRAUMATIC, NORMAL INSPECTION, NORMOCEPHALIC - Eye Exam Eye Exam: EOMI, Normal appearance, PERRL Pupil Exam: NORMAL ACCOMODATION, PERRL - ENT Exam ENT Exam: Mucous Membranes Moist, Normal Exam - Neck Exam Neck Exam: Full ROM, Normal Inspection. absent: Lymphadenopathy - Respiratory Exam Respiratory Exam: Clear to Ausculation Bilateral, NORMAL BREATHING PATTERN - Cardiovascular Exam Cardiovascular Exam: REGULAR RHYTHM, RRR, +S1, +S2. absent: Murmur - GI/Abdominal Exam GI & Abdominal Exam: Soft, Tenderness, Normal Bowel Sounds Additional comments: ruq - Extremities Exam Extremities Exam: Full ROM, Normal Capillary Refill, Normal Inspection. absent: Joint Swelling, Pedal Edema - Back Exam Back Exam: NORMAL INSPECTION - Neurological Exam Neurological Exam: Alert, Awake, CN II-XII Intact, Normal Gait, Oriented x3 - Psychiatric Exam Psychiatric exam: Normal Affect, Normal Mood - Skin Skin Exam: Dry, Intact, Normal Color, Warm Assessment and Plan (1) Cholelithiasis Assessment & Plan: cholecystitis on hida for or today medically cleared cont anbx, pain control, npo, ivf surgical consult appriciated. Status: Acute (2) DVT prophylaxis Assessment & Plan: scd nad ae hose consider anticoag postop ambulation postop Status: Acute (3) Sepsis Assessment & Plan: wbc normalizing. bw appears normal. less like sepsis. vss Status: Acute
[2018-06-22] MEDS ORDERED: Propofol 10 mg/ml Inj (20 ML) ONE (09:19)
[2018-06-22] MEDS ORDERED: Dexamethasone 4 mg/1 ml ONE (09:20)
[2018-06-22] MEDS ORDERED: Succinylcholine Chloride 20 mg/ml Syr (5 ml) IV ONE (09:20)
[2018-06-22] MEDS ORDERED: Rocuronium 10 mg/ml (5 ml) ONE (09:20)
[2018-06-22] MEDS ORDERED: Sodium Chloride 0.9% 1,000 ML IV ONE ×2 (09:40→10:33)
[2018-06-22] MEDS ORDERED: Albuterol HFA 90 mcg/actuation (8 g) ONE (09:49)
[2018-06-22] MEDS ORDERED: Bupivacaine 0.5% Inj(30mL) ONE (10:27)
[2018-06-22] MEDS: HYDROmorphone 0.5 mg/0.5 ml ISec IVP PRN ×4 (11:00→11:35)
[2018-06-22] MEDS ORDERED: Sodium Chloride 0.9% 1,000 ML IV SCH (11:00)
--- NOTE | 2018-06-22 11:18 | PCM.SURG1 ---
Surgeon's Initial Post Op Note - Surgeon's Notes Surgeon: tre Analysis Reporting Developer: pauline Type of Anesthesia: General Endo Anesthesia Administered By: lydia Pre-Operative Diagnosis: cholecystitis Operative Findings: cysrtic duct, cystic artery, critical view obtained Post-Operative Diagnosis: same Operation Performed: lap althea Specimen/Specimens Removed: gallbladder Estimated Blood Loss: EBL {In ML}: 5 Date of Surgery/Procedure: 06/22/18 Time of Surgery/Procedure: 11:18
[2018-06-22] MEDS ORDERED: Desflurane Inhalation Anesthetic Liq (240 ml) ONE (12:48)
--- NOTE | 2018-06-22 21:34 | PQF ---
PROVIDER RESPONSE TEXT: Mild int w/o exacerbation REVIEWER QUERY TEXT: Asthma Specificity and Type Physician?s Documentation Request This Form is Not a Permanent Document in the Medical Record Pt Name: AMELIA BREAUX MR #: [id number] Payor: [facility] Unit/Bed: [id number].TEL-H406-2 Adm Date: 06/20/2018 9:15:00 PM Reviewer: Lisa Joy Ext. Query Date: 06/22/2018 10:51:05 AM Asthma Specificity and Type [id number] By submitting this query, we are merely seeking further clarification of documentation to accurately reflect all conditions that you are monitoring, evaluating, treating or that extend the hospitalizati on or utilize additional resources of care. Please utilize your independent clinical judgment when ad dressing the question(s) below. Dear Doctor Zia Rodriguez, The patient?s Clinical Indicators include: Home Medications: Singulair, Claritin, Ventolin HFA In-hospital: Duoneb x 1, Ventolin HFA x 1 dose History of Asthma is documented in the Medical Record. Please specify the type if known Such as: -- Mild intermittent -- Mild persistent -- Moderate persistent -- Severe persistent -- Exercise induced bronchospasm -- Cough variant asthma -- Other, please specify -- Unable to determine PLEASE DOCUMENT ANY ADDITIONAL DIAGNOSES AND/OR SPECIFICITY IN THE PROGRESS NOTES AND/OR DISCHARGE [facility]. Clinically unable to determine/unknown Disagree with the above request Need to discuss Query created by: Lisa Joy on 06/22/2018 10:51 AM Electronically signed by: Zia Rodriguez APN 06/22/2018 9:30 PM
--- NOTE | 2018-06-22 23:21 | CP.PCM.PN ---
Subjective - Date & Time of Evaluation Date of Evaluation: 06/22/18 Time of Evaluation: 23:20 - Subjective Subjective: doing well Objective - Vital Signs/Intake and Output Vital Signs (last 24 hours): Temp Pulse Resp BP Pulse Ox 99.5 F 66 16 147/71 98 06/22/18 20:00 06/22/18 20:00 06/22/18 20:00 06/22/18 20:00 06/22/18 20:00 Intake and Output: 06/22/18 06/23/18 18:59 06:59 Intake Total 1200 950 Output Total 300 Balance 900 950 - Medications Medications: Current Medications Acetaminophen (Tylenol 325mg Tab) 650 mg PO Q4 PRN PRN Reason: Fever >100.4 F Last Admin: 06/22/18 04:15 Dose: 650 mg Famotidine (Pepcid) 20 mg IVP Q12 LAY Last Admin: 06/22/18 21:22 Dose: 20 mg Piperacillin Sod/Tazobactam (Sod 3.375 gm/ Sodium Chloride) 100 mls @ 100 mls/hr IVPB Q6 LAY; Protocol Last Admin: 06/22/18 21:21 Dose: 100 mls/hr Lactated Ringer's (Lactated Ringer's) 1,000 mls @ 125 mls/hr IV .Q8H LAY Last Admin: 06/22/18 21:47 Dose: 125 mls/hr Ketorolac Tromethamine (Toradol) 15 mg IVP Q6 PRN PRN Reason: Pain, moderate (4-7) Morphine Sulfate (Morphine) 2 mg IVP Q4 PRN PRN Reason: Pain, severe (8-10) Last Admin: 06/22/18 21:23 Dose: 2 mg Nicotine (Nicoderm Cq) 1 patch TD DAILY LAY Last Admin: 06/22/18 09:10 Dose: 1 patch Nicotine (Nicoderm Cq) 1 patch TD DAILY [facility] Last Admin: 06/22/18 09:10 Dose: Not Given Ondansetron HCl (Zofran Inj) 4 mg IVP Q6 PRN PRN Reason: Nausea/Vomiting Last Admin: 06/22/18 04:42 Dose: 4 mg - Labs Labs: 06/22/18 04:45 06/22/18 04:45 PT 14.6 Seconds (9.8-13.1) H 06/22/18 04:45 INR 1.3 06/22/18 04:45 APTT 33.0 Seconds (25.6-37.1) 06/22/18 04:45 - Head Exam Head Exam: NORMOCEPHALIC - Neck Exam Neck Exam: Normal Inspection - GI/Abdominal Exam GI & Abdominal Exam: Soft, Tenderness, Normal Bowel Sounds Assessment and Plan - Assessment and Plan (Free Text) Assessment: 38 yo female with cholecystitis doing well post op dc planning once able
[2018-06-23] MEDS: Piperacillin/Tazobact 3.375 GM in Sodium Chloride 0.9% 100 ML IVPB SCH ×2 (03:35→09:31)
[2018-06-23 06:06] LABS: BASO % 0.5 % (0.0-2.0); EOS # 0.1 K/uL (0.0-0.7); EOS % 0.7 % (0.0-4.0); HEMOGLOBIN 9.8 g/dL (12.0-16.0); LYMPH # 1.3 K/uL (1.0-4.3); LYMPH % 14.8 % (20.0-40.0); MEAN CELL VOLUME 75.7 fl (81.0-99.0); MEAN CORPUSCULAR HEMOGLOBIN 25.1 pg (27.0-31.0); MEAN CORPUSCULAR HGB CONC 33.2 g/dL (33.0-37.0); MEAN PLATELET VOLUME 8.8 fl (7.2-11.7); MONO # 1.1 K/uL (0.0-0.8); MONO % 12.9 % (0.0-10.0); NEUT # 6.3 K/uL (1.8-7.0); NEUT % 71.1 % (50.0-75.0); NRBC % 0.1 % (0.0-0.0); RBC 3.91 Mil/uL (3.80-5.20); RED CELL DISTRIBUTION WIDTH 19.3 % (11.5-14.5); WHITE BLOOD COUNT 8.9 K/uL (4.8-10.8)
[2018-06-23 06:11] LABS: ALBUMIN 3.4 g/dL (3.5-5.0); ALT/SGPT 50 U/L (9-52); AST/SGOT 33 U/L (14-36); BLOOD UREA NITROGEN 9 mg/dl (7-17); CALCIUM 7.7 mg/dL (8.4-10.2); GFR NON-AFRICAN AMERICAN > 60
--- NOTE | 2018-06-23 08:06 | CP.PCM.PN ---
<OnesimomarisolMisha - Last Filed: 06/23/18 08:28> Subjective - Date & Time of Evaluation Date of Evaluation: 06/23/18 Time of Evaluation: 08:03 - Subjective Subjective: Surgery Progress Note for Dr. Laboy 38F seen and evaluated at bedside this morning. No acute events overnight. Patient complaining of some surgical site pain at umbilicus, controlled with medication. Tolerated diet and voided. No passing of flatus. Denies f/c, n/v/d, SOB, CP, or urinary symptoms. Objective - Vital Signs/Intake and Output Vital Signs (last 24 hours): Temp Pulse Resp BP Pulse Ox 98 F 60 18 126/64 96 06/23/18 04:58 06/23/18 04:58 06/23/18 04:58 06/23/18 04:58 06/23/18 04:58 Intake and Output: 06/23/18 06/23/18 06:59 18:59 Intake Total 950 Balance 950 - Medications Medications: Current Medications Acetaminophen (Tylenol 325mg Tab) 650 mg PO Q4 PRN PRN Reason: Fever >100.4 F Last Admin: 06/22/18 04:15 Dose: 650 mg Famotidine (Pepcid) 20 mg IVP Q12 LAY Last Admin: 06/22/18 21:22 Dose: 20 mg Piperacillin Sod/Tazobactam (Sod 3.375 gm/ Sodium Chloride) 100 mls @ 100 mls/hr IVPB Q6 LAY; Protocol Last Admin: 06/23/18 03:35 Dose: 100 mls/hr Lactated Ringer's (Lactated Ringer's) 1,000 mls @ 125 mls/hr IV .Q8H LAY Last Admin: 06/22/18 21:47 Dose: 125 mls/hr Ketorolac Tromethamine (Toradol) 15 mg IVP Q6 PRN PRN Reason: Pain, moderate (4-7) Last Admin: 06/23/18 01:54 Dose: 15 mg Morphine Sulfate (Morphine) 2 mg IVP Q4 PRN PRN Reason: Pain, severe (8-10) Last Admin: 06/22/18 21:23 Dose: 2 mg Nicotine (Nicoderm Cq) 1 patch TD DAILY LAY Last Admin: 06/22/18 09:10 Dose: 1 patch Nicotine (Nicoderm Cq) 1 patch TD DAILY LAY Last Admin: 06/22/18 09:10 Dose: Not Given Ondansetron HCl (Zofran Inj) 4 mg IVP Q6 PRN PRN Reason: Nausea/Vomiting Last Admin: 06/22/18 04:42 Dose: 4 mg - Labs Labs: 06/23/18 04:55 06/23/18 04:55 PT 14.6 Seconds (9.8-13.1) H 06/22/18 04:45 INR 1.3 06/22/18 04:45 APTT 33.0 Seconds (25.6-37.1) 06/22/18 04:45 - Constitutional Appears: Well, Non-toxic, No Acute Distress - Head Exam Head Exam: ATRAUMATIC, NORMAL INSPECTION, NORMOCEPHALIC - Eye Exam Eye Exam: EOMI - ENT Exam ENT Exam: Mucous Membranes Moist - Respiratory Exam Respiratory Exam: NORMAL BREATHING PATTERN. absent: Wheezes, Respiratory Distress - Cardiovascular Exam Cardiovascular Exam: REGULAR RHYTHM, +S1, +S2 - GI/Abdominal Exam GI & Abdominal Exam: Soft, Tenderness, Normal Bowel Sounds. absent: Distended, Guarding, Rigid, Rebound - Neurological Exam Neurological Exam: Alert, Awake, Oriented x3 - Psychiatric Exam Psychiatric exam: Normal Affect, Normal Mood - Skin Skin Exam: Dry, Intact, Normal Color, Warm Assessment and Plan - Assessment and Plan (Free Text) Assessment: 38F s/p laparoscopic cholecystectomy POD1 Plan: Regular diet as tolerated Pain control and antiemetics PRN Encourage IS use and ambulation Monitor bowel function Cleared for discharge from a surgical standpoint Patient to follow up with Dr. Gill in 2 weeks. Please call in advance to scheduled appointment Misha Smith PGY1 <Bill Laboy - Last Filed: 06/23/18 09:58> Objective - Vital Signs/Intake and Output Vital Signs (last 24 hours): Temp Pulse Resp BP Pulse Ox 98.0 F 58 L 20 135/76 98 06/23/18 08:29 06/23/18 08:29 06/23/18 08:29 06/23/18 08:29 06/23/18 08:29 Intake and Output: 06/23/18 06/23/18 06:59 18:59 Intake Total 950 Balance 950 - Medications Medications: Current Medications Acetaminophen (Tylenol 325mg Tab) 650 mg PO Q4 PRN PRN Reason: Fever >100.4 F Last Admin: 06/22/18 04:15 Dose: 650 mg Famotidine (Pepcid) 20 mg IVP Q12 [facility] Last Admin: 06/23/18 09:32 Dose: 20 mg Piperacillin Sod/Tazobactam (Sod 3.375 gm/ Sodium Chloride) 100 mls @ 100 mls/hr IVPB Q6 LAY; Protocol Last Admin: 06/23/18 09:31 Dose: 100 mls/hr Lactated Ringer's (Lactated Ringer's) 1,000 mls @ 125 mls/hr IV .Q8H [facility] Last Admin: 06/23/18 08:32 Dose: 125 mls/hr Ketorolac Tromethamine (Toradol) 15 mg IVP Q6 PRN PRN Reason: Pain, moderate (4-7) Last Admin: 06/23/18 01:54 Dose: 15 mg Morphine Sulfate (Morphine) 2 mg IVP Q4 PRN PRN Reason: Pain, severe (8-10) Last Admin: 06/22/18 21:23 Dose: 2 mg Nicotine (Nicoderm Cq) 1 patch TD DAILY [facility] Last Admin: 06/23/18 08:35 Dose: 1 patch Nicotine (Nicoderm Cq) 1 patch TD DAILY [facility] Last Admin: 06/23/18 08:31 Dose: Not Given Ondansetron HCl (Zofran Inj) 4 mg IVP Q6 PRN PRN Reason: Nausea/Vomiting Last Admin: 06/22/18 04:42 Dose: 4 mg - Labs Labs: 06/23/18 04:55 06/23/18 04:55 PT 14.6 Seconds (9.8-13.1) H 06/22/18 04:45 INR 1.3 06/22/18 04:45 APTT 33.0 Seconds (25.6-37.1) 06/22/18 04:45 Assessment and Plan - Assessment and Plan (Free Text) Plan: tolerating diet, reports incisional pain, controlled with pain meds. Afebrile,hemodynamically stable. gen: awake, alert, NAD heent: nc/at, eomi, no scleral icterus resp: no acute respiratory distress abd: soft, ND, appropriate incisional tenderness, lap ports incision c/d/i -cont diet -pain control -stable for dc
[2018-06-23] MEDS: Lactated Ringer's 1,000 ML IV SCH (08:32)
--- NOTE | 2018-06-23 08:42 | PQF ---
PROVIDER RESPONSE TEXT: Sepsis appears r/o REVIEWER QUERY TEXT: Rule Out Sepsis Clarification Physician?s Documentation Request This Form is Not a Permanent Document in the Medical Record Pt Name: AMELIA BREAUX MR #: [id number] Payor: [facility] Unit/Bed: [id number].[id number] Adm Date: 06/20/2018 9:15:00 PM Reviewer: Lisa Joy Ext. Query Date: 06/23/2018 6:37:35 AM Rule Out Sepsis Clarification [id number] By submitting this query, we are merely seeking further clarification of documentation to accurately reflect all conditions that you are monitoring, evaluating, treating or that extend the hospitalizati on or utilize additional resources of care. Please utilize your independent clinical judgment when ad dressing the question(s) below. Dear Doctor Zia Rodriguez, The patient?s Clinical Indicators include: C/O Upper abdominal pain which radiates to her back. + nausea and body aches. WBC 11.1 L shift , Lactate 1.2, BLOOD CS No growth 48 hours. HIDA: Acute cholecystitis. TEMP: 99.6, 101.6, 100 x 3, 98.8, 102.8 , 102.8, 98.8 HR: 104, 78, 82, 82, 69 x 3, 86 BP: 127/62, 106/59, 108/66, 108/66, 106/64, 104/54 Rx: IVAB Progress note of 06/22/18: Diagnosis #3: Sepsis-- WBC normalizing, BW appears normal, less like sepsis, VSS Please clarify if Sepsis was ruled in or ruled out. ( Cannot accept abbreviation r/in or r/o) along w ith the etiology. Please clarify whether: -- Patient has sepsis - Please document confirmed, suspected or probable causative organism - Please document confirmed, suspected or probable localized infection - Please clarify if sepsis is related to a device - Please clarify if sepsis was present on admission -- Sepsis was ruled out (include corresponding diagnosis for patient?s clinical picture and treatment ) -- Patient had sepsis which is resolved -- Other, please specify PLEASE DOCUMENT ANY ADDITIONAL DIAGNOSES AND/OR SPECIFICITY IN THE PROGRESS NOTES AND/OR DISCHARGE [facility]. Clinically unable to determine/unknown Disagree with the above request Need to discuss Query created by: Lisa Joy on 06/23/2018 6:37 AM Electronically signed by: Zia Rodriguez APN 06/23/2018 8:39 AM
--- NOTE | 2018-06-23 08:42 | CP.PCM.DIS ---
Provider - Provider Date of Admission: 06/20/18 21:15 Attending physician: Alexandro Nguyen MD Consults: 06/20/18 21:58 Gastroenterology Consult Stat Comment: Consulting Provider: Dennis Hirsch Consulting Physician: Dennis Hirsch Reason for Consult: cholelithiasis General Surgery Consult Stat Comment: Consulting Provider: Maximus Gill Consulting Physician: Maximus Gill Reason for Consult: cholelithiasis, fever Time Spent in preparation of Discharge (in minutes): 15 Diagnosis - Discharge Diagnosis (1) Cholelithiasis Status: Acute (2) DVT prophylaxis Status: Acute (3) Sepsis Status: Acute Hospital Course - Lab Results Lab Results: Micro Results 06/20/18 22:32 Blood Blood Culture - Preliminary NO GROWTH AFTER 48 HOURS 06/20/18 22:10 Blood Blood Culture - Preliminary NO GROWTH AFTER 48 HOURS Most Recent Lab Values WBC 8.9 K/uL (4.8-10.8) 06/23/18 04:55 RBC 3.91 Mil/uL (3.80-5.20) 06/23/18 04:55 Hgb 9.8 g/dL (12.0-16.0) L 06/23/18 04:55 Hct 29.6 % (34.0-47.0) L 06/23/18 04:55 MCV 75.7 fl (81.0-99.0) L 06/23/18 04:55 MCH 25.1 pg (27.0-31.0) L 06/23/18 04:55 MCHC 33.2 g/dL (33.0-37.0) 06/23/18 04:55 RDW 19.3 % (11.5-14.5) H 06/23/18 04:55 Plt Count 231 K/uL (130-400) 06/23/18 04:55 MPV 8.8 fl (7.2-11.7) 06/23/18 04:55 Neut % (Auto) 71.1 % (50.0-75.0) 06/23/18 04:55 Lymph % (Auto) 14.8 % (20.0-40.0) L 06/23/18 04:55 [place] % (Auto) 12.9 % (0.0-10.0) H 06/23/18 04:55 Eos % (Auto) 0.7 % (0.0-4.0) 06/23/18 04:55 Baso % (Auto) 0.5 % (0.0-2.0) 06/23/18 04:55 Neut # (Auto) 6.3 K/uL (1.8-7.0) 06/23/18 04:55 Lymph # (Auto) 1.3 K/uL (1.0-4.3) 06/23/18 04:55 [place] # (Auto) 1.1 K/uL (0.0-0.8) H 06/23/18 04:55 Eos # (Auto) 0.1 K/uL (0.0-0.7) 06/23/18 04:55 Baso # (Auto) 0.0 K/uL (0.0-0.2) 06/23/18 04:55 Neutrophils % (Manual) 79 % (42-75) H 06/20/18 18:18 Lymphocytes % (Manual) 13 % (20-50) L 06/20/18 18:18 Monocytes % (Manual) 5 % (0-10) 06/20/18 18:18 Eosinophils % (Manual) 2 % (0-7) 06/20/18 18:18 Basophils % (Manual) 1 % (0-2) 06/20/18 18:18 Platelet Estimate Normal (NORMAL) 06/20/18 18:18 Hypochromasia (manual) Slight 06/20/18 18:18 Anisocytosis (manual) Slight 06/20/18 18:18 Microcytosis (manual) Slight 06/20/18 18:18 Ovalocytes Slight 06/20/18 18:18 PT 14.6 Seconds (9.8-13.1) H 06/22/18 04:45 INR 1.3 06/22/18 04:45 APTT 33.0 Seconds (25.6-37.1) 06/22/18 04:45 pO2 43 mm/Hg (30-55) 06/20/18 22:10 VBG pH 7.43 (7.32-7.43) 06/20/18 22:10 VBG pCO2 38 mmHg (40-60) L 06/20/18 22:10 VBG HCO3 25.2 mmol/L 06/20/18 22:10 VBG Total CO2 26.4 mmol/L (22-28) 06/20/18 22:10 VBG O2 Sat (Calc) 84.8 % (40-65) H 06/20/18 22:10 VBG Base Excess 1.0 mmol/L (0.0-2.0) 06/20/18 22:10 VBG Potassium 3.7 mmol/L (3.6-5.2) 06/20/18 22:10 Sodium 134.0 mmol/L (132-148) 06/20/18 22:10 Chloride 103.0 mmol/L (98-107) 06/20/18 22:10 Glucose 85 mg/dL (65-105) 06/20/18 22:10 Lactate 1.2 mmol/L (0.7-2.1) 06/20/18 22:10 FiO2 21.0 % 06/20/18 22:10 Sodium 137 mmol/l (132-148) 06/23/18 04:55 Potassium 3.5 MMOL/L (3.6-5.0) L 06/23/18 04:55 Chloride 105 mmol/L (98-107) 06/23/18 04:55 Carbon Dioxide 24 mmol/L (22-30) 06/23/18 04:55 Anion Gap 12 (10-20) 06/23/18 04:55 BUN 9 mg/dl (7-17) 06/23/18 04:55 Creatinine 0.5 mg/dl (0.7-1.2) L 06/23/18 04:55 Est GFR ( Amer) > 60 06/23/18 04:55 Est GFR (Non-Af Amer) > 60 06/23/18 04:55 POC Glucose (mg/dL) 113 mg/dL (65-110) H 06/22/18 10:59 Random Glucose 79 mg/dL (65-105) 06/23/18 04:55 Calcium 7.7 mg/dL (8.4-10.2) L 06/23/18 04:55 Phosphorus 3.7 mg/dl (2.5-4.5) 06/22/18 04:45 Magnesium 2.1 MG/DL (1.6-2.3) 06/22/18 04:45 Total Bilirubin 0.3 mg/dl (0.2-1.3) 06/23/18 04:55 AST 33 U/L (14-36) 06/23/18 04:55 ALT 50 U/L (9-52) 06/23/18 04:55 Alkaline Phosphatase 87 U/L (38-126) 06/23/18 04:55 Total Protein 6.6 G/DL (6.3-8.2) 06/23/18 04:55 Albumin 3.4 g/dL (3.5-5.0) L 06/23/18 04:55 Globulin 3.2 gm/dL (2.2-3.9) 06/23/18 04:55 Albumin/Globulin Ratio 1.0 (1.0-2.1) 06/23/18 04:55 Lipase 100 U/L (23-300) 06/20/18 18:18 Venous Blood Potassium 3.7 mmol/L (3.6-5.2) 06/20/18 22:10 Urine Color Yellow (YELLOW) 06/20/18 18:02 Urine Clarity Clear (Clear) 06/20/18 18:02 Urine pH 6.0 (5.0-8.0) 06/20/18 18:02 Ur Specific [place] 1.011 (1.003-1.030) 06/20/18 18:02 Urine Protein Negative mg/dL (NEGATIVE) 06/20/18 18:02 Urine Glucose (UA) Neg mg/dL (NEGATIVE) 06/20/18 18:02 Urine Ketones Negative mg/dL (NEGATIVE) 06/20/18 18:02 Urine Blood Negative (NEGATIVE) 06/20/18 18:02 Urine Nitrate Negative (NEGATIVE) 06/20/18 18:02 Urine Bilirubin Negative (NEGATIVE) 06/20/18 18:02 Urine Urobilinogen 0.2-1.0 mg/dL (0.2-1.0) 06/20/18 18:02 Ur Leukocyte Esterase Neg [place]/uL (Negative) 06/20/18 18:02 Urine RBC (Auto) 1 /hpf (0-3) 06/20/18 18:02 Urine Microscopic WBC < 1 /hpf (0-5) 06/20/18 18:02 Blood Type A POSITIVE 06/22/18 04:45 Blood Type Confirm A POSITIVE 06/22/18 05:30 Antibody Screen Negative 06/22/18 04:45 BBK History Checked No verified bt 06/22/18 04:45 - Hospital Course Hospital Course: surgery and gi consults anbx, pain meds pt had lap althea andis feeling better w/o fevers. bw noted. Discharge Exam - Head Exam Head Exam: ATRAUMATIC, NORMAL INSPECTION, NORMOCEPHALIC - Eye Exam Eye Exam: EOMI, Normal appearance, PERRL Pupil Exam: NORMAL ACCOMODATION, PERRL - Respiratory Exam Respiratory Exam: Clear to PA & Lateral, NORMAL BREATHING PATTERN, UNREMARKABLE - Cardiovascular Exam Cardiovascular Exam: REGULAR RHYTHM, RRR, +S1, +S2 - GI/Abdominal Exam GI & Abdominal Exam: Normal Bowel Sounds, Soft, Unremarkable - Extremities Exam Extremities exam: full ROM, normal capillary refill, normal inspection, pedal pulses present - Back Exam Back exam: FULL ROM - Neurological Exam Neurological exam: Alert, CN II-XII Intact, Normal Gait, Oriented x3, Reflexes Normal - Psychiatric Exam Psychiatric exam: Normal Affect, Normal Mood - Skin Skin Exam: Dry, Intact, Normal Color, Warm Discharge Plan - Discharge Medications Prescriptions: Amoxicillin/Clavulanate [Augmentin 875 MG-125 MG] 1 tab PO BID #10 tab Nicotine 21 mg/24 hr [Nicoderm Cq] 1 patch TD DAILY #30 patch oxyCODONE/Acetaminophen [Percocet 5/325 mg Tab] 1 tab PO Q4 PRN #10 tab PRN Reason: Pain, Severe (8-10) - Follow Up Plan Condition: FAIR Disposition: HOME/ ROUTINE Instructions: Cholecystectomy, Laparoscopic Surgery Additional Instructions: Please follow up with your surgeon Dr. Gill within 2 weeks of discharge. Call in advance to schedule your appointment. Please resume any home medications and regular, healthy diet. For pain, over the counter Tylenol or Ibuprofen as needed. Do not take Ibuprofen on an empty stomach. No heavy lifting greater than 15 lb for the next 4 weeks. Ok to shower. There is skin glue over your incisions which will fall off on its own. Do not peel it off. Please avoid baths, jacuzzis, or other large bodies of water for the next 2 weeks. If symptoms worsen, promptly return to the nearest emergency department. ' final dx-cholilithaisis, cholecystitis. doign well, cleared by surgery. po and exercise tolerant f/u rmg and surgery, rted prn, meds per med rec Referrals: Maximus Gill MD [Staff Provider] -
[2018-06-23 11:38] VITALS: BP 133/76; PULSE 66; RESP 18; TEMP 98; O2SAT 100
--- NOTE | 2018-06-28 11:57 | OP ---
PROCEDURE DATE: 06/22/2018 OPERATION PERFORMED: Laparoscopic cholecystectomy. SURGEON: Maximus Gill MD PRE-OPERATIVE DIAGNOSIS: Cholecystitis POST-OPERATIVE DIAGNOSIS: Same TYPE OF ANESTHESIA: General Endo [employer] INSPECTOR: Ray Pichardo ESTIMATED BLOOD LOSS: Minimal. OPERATIVE FINDINGS: cysrtic duct, cystic artery, critical view obtained SPECIMEN REMOVED: 1. Gallbladder ESTIMATED BLOOD LOSS: EBL {In ML}: 5 The operative proceedings are as follows. PREPARATION AND PROCEDURE: The patient was taken to the operating room and placed supine on the operating room table. After induction of general anesthesia, the abdomen was prepped and draped in a standard surgical fashion. A Veress needle was inserted into the abdomen through the umbilicus. The abdomen was insufflated. Once sufficient CO2 was entered into the abdomen, a 10-mm trocar was placed through the umbilicus and a diagnostic laparoscopy was performed. The patient was then placed into the reversed Trendelenburg left side down position and the subxiphoid and two right-sided trocars were placed under direct vision. The gallbladder was grasped from the fundus and pulled upwards and the neck of the gallbladder was pulled outwards exposing the triangle of Calot. Blunt dissection with a [place] dissector was used to isolate the contents of the triangle of [place]ot. Once the contents of the triangle were isolated, the cystic duct was identified and seen to be entering the gallbladder. The cystic duct was then clipped and divided. The cystic artery was then encircled clipped and divided in a similar fashion. The gallbladder was then taken off the gallbladder fossa using the electrocautery. Once the gallbladder was off the gallbladder fossa, it was placed into an EndoCatch bag. The right upper quadrant was copiously irrigated. The gallbladder fossa was checked for bleeding. There was no evidence of bleeding. The irrigant was removed. The gallbladder was then removed via the umbilical trocar site. The trocars were then removed under direct vision. The umbilical trocar site was closed using #0 Vicryl. The skin incisions were closed using #4-0 Monocryl and the patient had 10 cc of 1% Marcaine infiltrated into all the wounds. The patient tolerated the procedure well. There were no complications. The sponge, instrument, and needle counts were correct at the end of the case. POSTOPERATIVE CONDITION: The patient was then awakened from general anesthesia, transported to the recovery room in satisfactory condition. MD GABINO Mac
== END 2018-06-23 12:12 | disposition home or self-care (01) | DRG 419 ==
LOC: H.ER 16:41 → H.ERHOLD 21:15 → H.TEL 06-21 00:35
PROVIDERS: ADMIT Family Medicine; ATTEND Family Medicine
PROC: 0FT44ZZ Resection of Gallbladder, Percutaneous Endoscopic Approach (ICD-10-PCS; principal; 2018-06-22 07:45)
DX: K80.00 Calculus of gallbladder with acute cholecystitis without obstruction (principal); J45.20 Mild intermittent asthma, uncomplicated; Z98.84 Bariatric surgery status; F32.9 Major depressive disorder, single episode, unspecified; F41.9 Anxiety disorder, unspecified; E11.9 Type 2 diabetes mellitus without complications; I10 Essential (primary) hypertension; E78.00 Pure hypercholesterolemia, unspecified; E78.5 Hyperlipidemia, unspecified; E03.9 Hypothyroidism, unspecified; M06.9 Rheumatoid arthritis, unspecified; F17.210 Nicotine dependence, cigarettes, uncomplicated; Z96.641 Presence of right artificial hip joint; K21.9 Gastro-esophageal reflux disease without esophagitis; G47.30 Sleep apnea, unspecified; Z79.890 Hormone replacement therapy